=== PATIENT | male | born 1945 | race Caucasian/White ===

== ENCOUNTER 2024-09-22 16:05 | Emergency (ER) | payer SELFPAY ==
[2024-09-22 16:13] VITALS: BP 103/69; PULSE 114; TEMP 37.6; O2SAT 95; BMI 25.1
--- NOTE | 2024-09-22 16:30 | XR_ITS ---
The [address] [address] Patient Name: RAINER MARADIAGA MRN: [id number] date: 1945 Sex: M Assigned Patient Location: ED.MAIN Current Patient Location: ED.MAIN Accession/Order Number: [id number] Exam Date: 09/22/2024 16:48 Report Date: 09/22/2024 17:23 At the request of: BRI HOOKER Procedure: XR chest 1V EXAMINATION: XR chest 1V, , 09/22/2024 4:48 PM EST INDICATION: Cough HISTORY: Ordering Provider Reason for Exam: Cough Technologist Note: Additional: COMPARISON: None. TECHNIQUE: Chest x-ray: One view. FINDINGS: No pneumothorax, pleural effusion or focal airspace consolidation. Heart is normal in size. Bony thorax is unremarkable. XR/XR chest 1V IMPRESSION: No acute cardiopulmonary process. Electronically authenticated by: KITTY MAYA Date: 09/22/2024 17:23
--- NOTE | 2024-09-22 16:31 | ED.URI1 ---
HPI - URI/Sore Throat General Chief Complaint: Upper Respiratory Infection Stated Complaint: UPPER RESPIRATORY SYMPTOMS, FEVER Time Seen by Provider: 09/22/24 16:08 Source: patient History of Present Illness HPI Narrative: Patient is an 78-year-old with a history of high blood pressure who presents to the emergency department for evaluation of cough and congestion that began yesterday. His was sick with COVID last week. Patient states in the last day he has had fever, body aches and productive cough. He denies chest pain, shortness of breath. He has not had any vomiting or diarrhea. His son told him he should be evaluated in the emergency department because of his age. No medications taken prior to arrival, he had Tylenol this morning for fever and arrives afebrile to the ER. Related Data Home Medications ?Medication ?Instructions ?Recorded ?Confirmed lisinopril 10 mg tablet 20 mg PO DAILY 09/22/24 09/22/24 warfarin 5 mg tablet mg 09/22/24 Previous Rx's ?Medication ?Instructions ?Recorded dexamethasone 4 mg tablet 4 mg PO BID 5 days #10 tabs 09/22/24 ondansetron 4 mg disintegrating 4 mg PO Q6H PRN nausea and 09/22/24 tablet vomiting #12 tabs Allergies Allergy/AdvReac Type Severity Reaction Status Date / Time No Known Drug Allergies Allergy Verified 09/22/24 16:12 Review of Systems ROS Constitutional Reports: fever; Denies: chills Ears, nose, mouth, and throat Reports: nasal congestion; Denies: throat pain Cardiovascular Denies: chest pain Respiratory Reports: cough; Denies: shortness of breath Gastrointestinal Denies: nausea or vomiting Musculoskeletal Denies: back pain or neck pain Integumentary/Breast Denies: rash Neurological Denies: numbness in extremities or weakness in extremities Hematologic/Lymphatic Reports: easy bruising and easy bleeding PFSH PFSH Social History Little interest or pleasure in doing things: not at all Feeling down, depressed, or hopeless: not at all Exam Narrative Exam Narrative: Gen.: Awake, alert, in no distress Head: Normocephalic, atraumatic ENT: Moist mucous membranes Respiratory: No respiratory distress, lungs clear bilaterally, no wheezing or rhonchi Cardio: Regular rate and rhythm Gastrointestinal: Abdomen is soft, nondistended and nontender to palpation Extremities: Moves extremities equally Psych: Normal mood and affect Neuro: No focal neuro deficit Skin: Warm, dry, intact Constitutional Vital Signs, click to edit/add: Last Vital Signs Temp 99.7 F 09/22/24 16:13 Pulse 114 H 09/22/24 16:13 Resp 18 09/22/24 16:13 BP 103/69 09/22/24 16:13 Pulse Ox 95 09/22/24 16:13 O2 Del Method Room Air 09/22/24 16:13 Course Vital Signs Vital signs: Vital Signs Temperature 99.7 F 09/22/24 16:13 Pulse Rate 114 H 09/22/24 16:13 Respiratory Rate 18 09/22/24 16:13 Blood Pressure 103/69 09/22/24 16:13 Pulse Oximetry 95 09/22/24 16:13 Oxygen Delivery Method Room Air 09/22/24 16:13 Temperature 99.7 F 09/22/24 16:13 Pulse Rate 114 H 09/22/24 16:13 Respiratory Rate 18 09/22/24 16:13 Blood Pressure 103/69 09/22/24 16:13 Pulse Oximetry 95 09/22/24 16:13 Oxygen Delivery Method Room Air 09/22/24 16:13 MDM - URI/Sore Throat MDM Narrative Medical decision making narrative: Patient denies chest pain, shortness of breath. He has symptoms consistent with viral upper respiratory infection. Respiratory swabs and chest x-ray obtained and the patient was dosed with Decadron for symptoms. Patient with stable oxygenation, he is resting comfortably on reevaluation. He is positive for COVID as expected, chest x-ray reviewed by the radiologist with no acute process. Patient encouraged to return to the emergency department if he develops chest pain, shortness of breath, uncontrolled vomiting. He verbalizes agreement and is in agreement with treatment plan. Decadron twice daily for 5 days in addition to Zofran given for home. Quarantine instructions given. Education and reassurance at bedside. SUPERVISED APC VISIT, PHYSICIAN ATTESTATION: Based on the medical record the care appears appropriate. ? Medical Records Attestation: I reviewed the patient's medical records. Lab Data Attestation: I reviewed the patient's lab results. Labs: Lab Results 09/22/24 Range/Units 16:26 Influenza Type A Ag Negative Influenza Type B Ag Negative SARS-CoV-2 Ag (CV2AG) Positive A (NEGATIVE) Imaging Data Chest x-ray: Attestation: I have reviewed the pertinent imaging results. Radiologist's impression: ITS Impressions Chest X-Ray 09/22/24 16:30 IMPRESSION: No acute cardiopulmonary process. Electronically authenticated by: KITTY MAYA Date: 09/22/2024 17:23 Discharge Plan Discharge Chief Complaint: Upper Respiratory Infection Clinical Impression: COVID-19 Patient Disposition: Home, Self-Care Time of Disposition Decision: 17:29 Condition: Good Prescriptions / Home Meds: New dexamethasone 4 mg tablet 4 mg PO BID 5 Days Qty: 10 0RF ondansetron 4 mg tablet,disintegrating 4 mg PO Q6H PRN (Reason: nausea and vomiting) Qty: 12 0RF No Action lisinopril 10 mg tablet 20 mg PO DAILY warfarin 5 mg tablet Print Language: Citizen [place] Instructions: How to Recover from COVID-19 at Home (ED) Referrals: Physician,Non-Staff, MD [Primary Care Provider] - 1 week
[2024-09-22] MEDS: DEXAMETHASONE SOD PHOS 10 MG/ML VIAL PO (16:41)
[2024-09-22 16:54] LABS: Influenza Virus A Antigen Negative; Influenza Virus B Antigen Negative; Internal Control Within Normal Limits
[2024-09-22 16:55] LABS: Internal Control Within Normal Limits
[2024-09-22 16:56] LABS: SARS-CoV-2 Ag POSITIVE (NEGATIVE)
== END 2024-09-22 17:39 | disposition home or self-care (01) ==
PROVIDERS: Physician Assistant; Emergency Provider Emergency Medicine
DX: U07.1 COVID-19 (principal); I10 Essential (primary) hypertension
CPT/HCPCS: 71045; 87804; 87811; 99285; J1100